=== PATIENT | female | born 1990 | race Hispanic/Latino ===

== ENCOUNTER 2017-05-20 16:14 | Inpatient (IN) | payer BC ==
[2017-05-20] MEDS ORDERED: NACL 0.9% 1000 ML 1,000 ML IV ONE ×2 (16:31→16:41)
--- NOTE | 2017-05-20 16:40 | Emergency Department Report ---
ED General Adult HPI - General Chief complaint: Vaginal Bleeding Stated complaint: ATOPIC PREG. Time Seen by Provider: 05/20/17 16:23 Source: patient Mode of arrival: Ambulatory Limitations: No Limitations - History of Present Illness Initial comments: The patient is 5 weeks by dates she states. Her hCG I am told is 4000 and her uterus was empty on ultrasound in the office. Dr. Boateng called in and stated the patient is to be admitted for suspected ectopic . This is her first . She has been having intermittent vaginal bleeding. She does not complain of abdominal or pelvic pain. Patient has a history of hypertension. -: days(s) Severity scale (0 -10): 0 Consistency: intermittent Improves with: none Worsens with: none Associated Symptoms: denies other symptoms (except vaginal bleeding) Treatments Prior to Arrival: none - Related Data Allergies Allergy/AdvReac Type Severity Reaction Status Date / Time No Known Allergies Allergy Verified 05/20/17 16:24 ED Review of Systems ROS: Stated complaint: ATOPIC PREG. Other details as noted in HPI Constitutional: denies: chills, fever Eyes: denies: eye pain, eye discharge, vision change ENT: denies: ear pain, throat pain Respiratory: denies: cough, shortness of breath, wheezing Cardiovascular: denies: chest pain, palpitations Endocrine: no symptoms reported Gastrointestinal: denies: abdominal pain, nausea, diarrhea Genitourinary: as per HPI. denies: urgency, dysuria, discharge Musculoskeletal: denies: back pain, joint swelling, arthralgia Skin: denies: rash, lesions Neurological: denies: headache, weakness, paresthesias Psychiatric: denies: anxiety, depression Hematological/Lymphatic: denies: easy bleeding, easy bruising ED Past Medical Hx - Past Medical History Previous Medical History?: No - Surgical History Past Surgical History?: No - Social History Substance Use Type: None ED Physical Exam - General Limitations: No Limitations General appearance: alert, in no apparent distress - Head Head exam: Present: atraumatic, normocephalic - Eye Eye exam: Present: normal appearance. Absent: scleral icterus - ENT ENT exam: Present: mucous membranes moist - Neck Neck exam: Present: normal inspection - Respiratory Respiratory exam: Present: normal lung sounds bilaterally. Absent: respiratory distress - Cardiovascular Cardiovascular Exam: Present: regular rate, normal rhythm. Absent: systolic murmur, diastolic murmur, rubs, gallop - GI/Abdominal GI/Abdominal exam: Present: soft, normal bowel sounds. Absent: distended, tenderness, guarding, rebound, rigid - Extremities Exam Extremities exam: Present: normal inspection - Back Exam Back exam: Present: normal inspection - Neurological Exam Neurological exam: Present: alert, oriented X3, CN II-XII intact. Absent: motor sensory deficit - Psychiatric Psychiatric exam: Present: normal affect, normal mood - Skin Skin exam: Present: warm, dry, intact, normal color. Absent: rash ED Course Vital Signs 05/20/17 05/20/17 16:26 16:31 Temperature 98.7 F Pulse Rate 90 Respiratory 18 16 Rate Blood Pressure 154/105 [Right] O2 Sat by Pulse 99 Oximetry - Reevaluation(s) Reevaluation #1: I spoke with Dr. Boateng. The patient will be seen on mother baby by Dr. Boateng. 05/20/17 16:39 Critical care attestation.: If time is entered above; I have spent that time in minutes in the direct care of this critically ill patient, excluding procedure time. ED Disposition Clinical Impression: First trimester bleeding Hypertension Qualifiers: Hypertension type: unspecified Qualified Code(s): I10 - Essential (primary) hypertension Disposition: 09 OP ADMIT IP TO THIS HOSP Is pt being admited?: Yes Does the pt Need Aspirin: No Condition: Stable Instructions: Hypertension (ED) Time of Disposition: 16:40
[2017-05-20 17:04] LABS: Basophils % (Auto) 0.6 % (0.0-1.8); Eosinophils % (Auto) 1.1 % (0.0-4.3); Hematocrit 33.5 % (30.3-42.9); Hemoglobin 11.8 gm/dl (10.1-14.3); Mean Corpuscular HGB Conc 35 % (30-34); Mean Corpuscular Hemoglobin 34 pg (28-32); Mean Corpuscular Volume 98 fl (79-97); Platelet Count 365 K/mm3 (140-440); Red Blood Count 3.44 M/mm3 (3.65-5.03); Red Cell Distribution Width 11.3 % (13.2-15.2); White Blood Count 5.6 K/mm3 (4.5-11.0)
[2017-05-20 17:16] LABS: Partial Thromboplastin Time 29.3 Sec. (24.2-36.6)
[2017-05-20 17:20] LABS: Alanine Aminotransferase 21 units/L (7-56); Albumin 4.8 g/dL (3.9-5); Albumin/Globulin Ratio 1.4 %; Alkaline Phosphatase 70 units/L (35-129); Anion Gap 21 mmol/L; BUN/Creatinine Ratio 12; Blood Urea Nitrogen 6 mg/dL (7-17); Calcium 9.7 mg/dL (8.4-10.2); Carbon Dioxide 23 mmol/L (22-30); Glucose 92 mg/dL (65-100); Potassium 3.8 mmol/L (3.6-5.0); Sodium 139 mmol/L (137-145); Total Protein 8.3 g/dL (6.3-8.2)
[2017-05-20 17:22] LABS: Bilirubin,Direct < 0.2 mg/dL (0-0.2); Bilirubin,Indirect 0.3 mg/dL
[2017-05-20 20:14] LABS: Bilirubin,Urine NEG (Negative); Blood,Urine NEG (Negative); Ketones,Urine 20 mg/dL (Negative); Leukocyte Esterase,Urine NEG (Negative); Mucus,Urine FEW /HPF; Nitrite,Urine NEG (Negative); Protein,Urine <15 mg/dL mg/dL (Negative); RBC,Urine < 1.0 /HPF (0.0-6.0); Urobilinogen,Urine < 2.0 mg/dL (<2.0)
--- NOTE | 2017-05-20 22:46 | History and Physical Report ---
History of Present Illness Date of examination: 05/20/17 Date of admission: 05/20/17 16:40 Chief complaint: Vaginal bleeding suspected ectopic History of present illness: This is a 27-year-old female 1 para 0 who presented to the office on 11/2016 complaining of vaginal bleeding. Normal LMP was 03/18/2017. States she started bleeding again 04/22/2017. She thought this was a normal period. She started bleeding again on 04/30/2017 and has continued to bleed since that time. In the office her UPT was noted to be positive. She was noted to have scant blood-tinged mucus in the vagina but no active bleeding. Her quantitative beta hCG resulted on 05/19/2017 at 4032. She presented to the office today for further evaluation. Ultrasound revealed no intrauterine . Patient states bleeding had improved but continued to have some spotting. She is instructed to go ED for evaluation for ectopic . 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 Infection History Hx of STD: None Varicella/Chicken Pox Status: Previous Disease TB Risk: no Genetic History Thalassemia Mom: no Dad: no Neural Tube Defect Mom: no Dad: no Down's Syndrome Mom: no Dad: no Ivan-Sachs Mom: no Dad: no Sickle Cell Disease/Trait Mom: no Dad: no Hemophilia Mom: no Dad: no Muscular Dystrophy Mom: no Dad: no Cystic Fibrosis Mom: no Dad: no Jennifer Chorea Mom: no Dad: no Mental Retardation Mom: no Dad: no Fragile X Mom: no Dad: no Other Genetic/Chromosomal Disorder Mom: no Dad: no Child w/other defect Mom: no Dad: no Enviromental Exposures Enviromental Exposures Reviewed Xray Exposure no Chemical/Other Exposure no Past Medical History: Anxiety G E R D Hypertension Restless leg syndrome Past Surgical History: Negative Past Surgical History Family History Summary: Uncle - Has Family History of Lung Cancer - maternal - Entered On: 05/17/2017 MGM - Has Family History Breast Cancer - menopause - Entered On: 05/17/2017 Social History: Patient is Smoking History: Patient has never smoked. Risk Factors: Smoked Tobacco Use: Never smoker Drug use: no Alcohol use: yes Type: occ Drinks per day: social Exercise: yes Medications and Allergies Allergies Allergy/AdvReac Type Severity Reaction Status Date / Time No Known Allergies Allergy Verified 05/20/17 16:24 Home Medications Medication Instructions Recorded Confirmed Last Taken Type RX: Metoprolol [Lopressor TAB] 12.5 mg PO QPM 05/20/17 05/20/17 Unknown History RX: tiZANidine [Zanaflex] 4 mg PO QDAY PRN 05/20/17 05/20/17 Unknown History Ranitidine HCl [Zantac 150 MG TAB] 150 mg PO PRN PRN 05/20/17 05/20/17 Unknown History Active Meds: Active Medications Sodium Chloride (Nacl 0.9% 1000 Ml) 1,000 mls @ 75 mls/hr IV ONCE ONE Stop: 05/21/17 06:00 Last Admin: 05/20/17 19:37 Dose: 75 mls/hr Review of Systems All systems: negative Genitourinary Female: abnormal vaginal bleeding Exam - Constitutional Vitals: Temp Pulse Resp BP Pulse Ox 98.6 F 81 16 149/103 100 05/20/17 19:30 05/20/17 19:30 05/20/17 19:30 05/20/17 19:30 05/20/17 18:04 General appearance: Present: mild distress - Respiratory Respiratory effort: normal - Cardiovascular Rhythm: regular - Extremities Extremities: no ischemia, No edema - Abdominal General gastrointestinal: Present: soft Female genitourinary: Present: other (scant blood in vagina) - Integumentary Integumentary: Present: clear, warm, dry Results - Labs CBC & Chem 7: 05/20/17 Unknown 05/20/17 Unknown Labs: Abnormal lab results 05/20/17 05/20/17 05/20/17 Range/Units Unknown Unknown Unknown RBC 3.44 L (3.65-5.03) M/mm3 MCV 98 H (79-97) fl MCH 34 H (28-32) pg MCHC 35 H (30-34) % RDW 11.3 L (13.2-15.2) % [place] % (Auto) 7.5 H (0.0-7.3) % Lymph # 1.1 L (1.2-5.4) K/mm3 Seg Neutrophils % 71.5 H (40.0-70.0) % BUN 6 L (7-17) mg/dL Creatinine 0.5 L (0.7-1.2) mg/dL Total Protein 8.3 H (6.3-8.2) g/dL HCG, Quant 5332 H (0-4) mIU/mL Assessment and Plan - Patient Problems (1) Abnormal in first trimester Current Visit: Yes Status: Acute Plan to address problem: Probable ectopic . She is stable at this time and desires repeat qbhcg , cbc and TVUS in am. Options reviewed. Methotrexate instruction sheet given
[2017-05-21] MEDS ORDERED: LOPRESSOR PO SCH (01:00)
--- NOTE | 2017-05-21 09:15 | Ultrasound Report ---
FINAL REPORT EXAM: US OB TRANSVAGINAL HISTORY: evaluate for ectopic , hcg 5332 COMPARISONS: None. FINDINGS: Transvaginal grayscale and color Doppler ultrasound evaluation of the pelvis The uterus is retroverted and measures 7.3 x 3.1 x 3.8 cm. No intrauterine . Endometrial thickness is approximately 10 millimeters. The left ovary measures 2.9 x 1.9 x 3.3 cm and demonstrates normal echotexture and color Doppler evaluation. Separate from the ovary, there is a complex cystic left adnexal mass with marked peripheral blood flow on internal color Doppler measuring 2.4 x 1.6 x 1.7 cm. Moderate volume of dependent fluid is present in the cul-de-sac and adjacent to the left adnexa. The right ovary measures 4.1 x 1.9 x 2.9 cm and contains several functional cysts, the largest of which measures up to 2 cm. Normal color Doppler evaluation of the right ovary. IMPRESSION: No intrauterine . Cystic adnexal mass measuring up to 2.4 cm in the left ovary is concerning for an ectopic . Gynecology consultation and at a minimum, short interval clinical and imaging follow-up are recommended. Dr. Kincaid discussed findings with Dr. Monterroso at 08:10 SE[employer] HAND on 05/21/2017 immediately following the examination.
--- NOTE | 2017-05-21 09:16 | Ultrasound Report ---
FINAL REPORT EXAM: US OB \T\lt; = 14 WEEKS FETUS HISTORY: Possible ectopic COMPARISONS: None. FINDINGS: Transabdominal grayscale and color Doppler ultrasound evaluation of the pelvis The uterus measures 7.3 x 3.1 x 3.8 cm. No intrauterine . Endometrial thickness is approximately 10 millimeters. The left ovary measures 2.9 x 1.9 x 3.3 cm and demonstrates normal echotexture and color Doppler evaluation. Separate from the ovary, there is a complex cystic left adnexal mass measuring 2.4 x 1.6 x 1.7 cm. A small volume of dependent fluid is present in the cul-de-sac and adjacent to the left adnexa. The right ovary measures 4.1 x 1.9 x 2.9 cm and contains several functional cysts, the largest of which measures up to 2 cm. Color Doppler flow is present in the right ovary. IMPRESSION: No intrauterine . Cystic adnexal mass measuring up to 2.4 cm in the left ovary is concerning for an ectopic and is better demonstrated on transvaginal ultrasound of the same date. Gynecology consultation and at a minimum, short interval clinical and imaging follow-up are recommended. Dr. Kincaid discussed findings with Dr. Monterroso at 08:10 [employer] on 05/21/2017 immediately following the examination.
[2017-05-21 09:21] LABS: Hematocrit 33.7 % (30.3-42.9); Hemoglobin 11.4 gm/dl (10.1-14.3); Mean Corpuscular HGB Conc 34 % (30-34); Mean Corpuscular Hemoglobin 33 pg (28-32); Mean Corpuscular Volume 98 fl (79-97); Platelet Count 342 K/mm3 (140-440); Red Blood Count 3.43 M/mm3 (3.65-5.03); Red Cell Distribution Width 11.5 % (13.2-15.2); White Blood Count 6.5 K/mm3 (4.5-11.0)
--- NOTE | 2017-05-21 11:00 | Discharge Summary ---
Providers - Providers Date of Admission: 05/20/17 16:40 Date of discharge: 05/21/17 Attending physician: BENNETT HARMON Primary care physician: CERTIFIED COMPOSITES TECHNICIAN Hospitalization Reason for admission: probable ectopic Condition: Stable Pertinent studies: HCG level on repeat is 5534, 2 d ago was 4000. Radiology report = L ectopic near ovary with some free fluid (also had apparent hydro on R side in office) Procedures: TV U/S Hospital course: Discussed with pt and family that this is definitely a tubal and she either needs surgery or methotrexate. After a long discussion and other family arrived they areed. Ectopic precautions given. She will need an appointment in the office on Tuesday for day 4 f/u. CMP,CBC wnl. Told to stop prenatals. Disposition: TO HOME OR SELFCARE - Discharge Diagnoses (1) Ectopic , tubal Status: Acute Qualifiers: Intrauterine status: I Laterality: left Comment: treated with MTX and discharged home with ectopic precautions, inc pain , fainting, distention. Do not leave pt alone, no exercise, no sex Core Measure Documentation - Palliative Care Palliative Care/ Comfort Measures: Not Applicable - Core Measures Any of the following diagnoses?: none Exam - Constitutional Vitals: Temp Pulse Resp BP Pulse Ox 98.6 F 69 16 136/82 100 05/21/17 04:30 05/21/17 04:30 05/21/17 04:30 05/21/17 04:30 05/20/17 18:04 General appearance: Present: no acute distress - Neck Neck: Present: supple - Respiratory Respiratory effort: normal - Cardiovascular Rhythm: regular - Extremities Extremities: no ischemia, No edema - Abdominal General gastrointestinal: Present: soft, non-tender Female genitourinary: Present: deferred Plan Activity: no restrictions (pelvic rest, no exercise), other (pelvic rest, no exercise) Weight Bearing Status: Full Weight Bearing Diet: regular Special Instructions: no heavy lifting Follow up with: KARI ABRAHAM MD [Staff Physician] - 7 Days (RTO on Tuesday) Forms: [facility] Discharge Summary, Discharge Signature Page
[2017-05-21] MEDS ORDERED: METHOTREXATE IM ONE (12:00)
[2017-05-21 15:39] VITALS: BP 148/100
== END 2017-05-21 17:46 | disposition home or self-care (01) | DRG 777 ==
LOC: ED 16:14 → OB 16:40
PROVIDERS: ADMIT Obstetrics & Gynecology; ATTEND Obstetrics & Gynecology
DX: O00.102 Left tubal pregnancy without intrauterine pregnancy (principal); O16.1 Unspecified maternal hypertension, first trimester; K21.9 Gastro-esophageal reflux disease without esophagitis; F41.9 Anxiety disorder, unspecified; G25.81 Restless legs syndrome; O99.341 Other mental disorders complicating pregnancy, first trimester; O99.611 Diseases of the digestive system complicating pregnancy, first trimester; Z80.3 Family history of malignant neoplasm of breast; Z80.1 Family history of malignant neoplasm of trachea, bronchus and lung; Z72.89 Other problems related to lifestyle; Z3A.01 Less than 8 weeks gestation of pregnancy
CPT/HCPCS: 36415; 76801; 76817; 80048; 80074; 81001; 84702; 85025; 85027; 85610; 85730; 86850; 86900; 86901; J7030; J9260

== ENCOUNTER 2017-05-28 17:17 | Observation (INO) | payer BC ==
[2017-05-28 19:34] LABS: Basophils % (Auto) 0.5 % (0.0-1.8); Eosinophils % (Auto) 3.6 % (0.0-4.3); Hematocrit 35.1 % (30.3-42.9); Hemoglobin 12.1 gm/dl (10.1-14.3); Mean Corpuscular HGB Conc 34 % (30-34); Mean Corpuscular Hemoglobin 34 pg (28-32); Mean Corpuscular Volume 98 fl (79-97); Platelet Count 373 K/mm3 (140-440); Red Blood Count 3.58 M/mm3 (3.65-5.03); Red Cell Distribution Width 11.2 % (13.2-15.2); White Blood Count 4.3 K/mm3 (4.5-11.0)
[2017-05-28 19:48] LABS: Anion Gap 21 mmol/L; BUN/Creatinine Ratio 15; Blood Urea Nitrogen 6 mg/dL (7-17); Calcium 9.6 mg/dL (8.4-10.2); Carbon Dioxide 23 mmol/L (22-30); Chloride 102.3 mmol/L (98-107); Glucose 85 mg/dL (65-100); Sodium 142 mmol/L (137-145)
--- NOTE | 2017-05-28 23:17 | Emergency Department Report ---
ED HPI - General Chief complaint: Medical Clearance Stated complaint: 2ND DOSE OF METHOTREX Time Seen by Provider: 05/28/17 23:14 Source: patient, family () Mode of arrival: Ambulatory Limitations: No Limitations - History of Present Illness Initial comments: PT HAS SUSPECTED ECTOPIC DIAGNOSED ON AND WAS ADMITTED ,GIVEN METHOTREXATE AND WAS TOLD TO COME TO THE HOSPITAL FOR ANOTHER SHOT OF THE MEDICATION. SHE IS HAVING MINIMAL AMOUNT OF VAGINAL BLEEDING BUT IS NOT EXPERIENCING AN ABDOMINAL PAIN MD Complaint: vaginal bleeding -: Gradual, week(s) (2) Radiation: none Severity: mild Severity scale (0 -10): 0 Associated symptoms: vaginal bleeding. denies: nausea/vomiting, vaginal discharge, abdominal pain Vaginal bleeding: light (NO CLOTS) OB History - Current : hypertension OB History - Previous Pregnancies: no complications Pre-willie care: none - Related Data : 1 Para: 0 Ab: 0 Home Medications Medication Instructions Recorded Confirmed Last Taken Metoprolol [Lopressor TAB] 12.5 mg PO QPM 05/20/17 05/20/17 Unknown Ranitidine HCl [Zantac 150 MG TAB] 150 mg PO PRN PRN 05/20/17 05/20/17 Unknown tiZANidine [Zanaflex] 4 mg PO QDAY PRN 05/20/17 05/20/17 Unknown Allergies Allergy/AdvReac Type Severity Reaction Status Date / Time No Known Allergies Allergy Verified 05/20/17 16:24 ED Review of Systems ROS: Stated complaint: 2ND DOSE OF METHOTREX Other details as noted in HPI Constitutional: denies: chills, fever Eyes: denies: eye pain, eye discharge, vision change ENT: denies: ear pain, throat pain Respiratory: denies: cough, shortness of breath, wheezing Cardiovascular: denies: chest pain, palpitations Endocrine: no symptoms reported Gastrointestinal: denies: abdominal pain, nausea, diarrhea Genitourinary: other (VAGINAL BLEEDING). denies: urgency, dysuria, discharge Musculoskeletal: denies: back pain, joint swelling, arthralgia Skin: denies: rash, lesions Neurological: denies: headache, weakness, paresthesias Psychiatric: anxiety. denies: depression Hematological/Lymphatic: denies: easy bleeding, easy bruising ED Past Medical Hx - Past Medical History Previous Medical History?: Yes Hx Hypertension: Yes Hx Psychiatric Treatment: Yes (Anxiety disorder and taking Xanax) Additional medical history: Methotrexate - Surgical History Past Surgical History?: No - Family History Family history: no significant - Social History Smoking Status: Never Smoker Substance Use Type: Alcohol - Medications Home Medications: Home Medications Medication Instructions Recorded Confirmed Last Taken Type Metoprolol [Lopressor TAB] 12.5 mg PO QPM 05/20/17 05/20/17 Unknown History Ranitidine HCl [Zantac 150 MG TAB] 150 mg PO PRN PRN 05/20/17 05/20/17 Unknown History tiZANidine [Zanaflex] 4 mg PO QDAY PRN 05/20/17 05/20/17 Unknown History ED Physical Exam - General Limitations: No Limitations General appearance: alert, in no apparent distress - Head Head exam: Present: atraumatic, normocephalic - Eye Eye exam: Present: normal appearance - ENT ENT exam: Present: mucous membranes moist - Neck Neck exam: Present: normal inspection - Respiratory Respiratory exam: Present: normal lung sounds bilaterally. Absent: respiratory distress - Cardiovascular Cardiovascular Exam: Present: regular rate, normal rhythm. Absent: systolic murmur, diastolic murmur, rubs, gallop - GI/Abdominal GI/Abdominal exam: Present: soft, normal bowel sounds - Rectal Rectal exam: Present: deferred - Extremities Exam Extremities exam: Present: normal inspection - Back Exam Back exam: Present: normal inspection - Neurological Exam Neurological exam: Present: alert, oriented X3 - Psychiatric Psychiatric exam: Present: normal affect, normal mood - Skin Skin exam: Present: warm, dry, intact, normal color. 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 ED Disposition Clinical Impression: Vaginal bleeding, Hypertension Ectopic Qualifiers: Location of ectopic : unspecified location Intrauterine status: unspecified Qualified Code(s): O00.90 - Unspecified ectopic without intrauterine Disposition: DC/TX-02 SHRT-TRM GEN HOSP IP Is pt being admited?: Yes Does the pt Need Aspirin: No Condition: Stable Time of Disposition: 01:54 (ADMITTED TO OB DR MUKHERJEE)
[2017-05-28] MEDS ORDERED: LOPRESSOR PO ONE (23:18)
[2017-05-28] MEDS ORDERED: LOPRESSOR ONE (23:23)
--- NOTE | 2017-05-29 00:45 | History and Physical Report ---
History of Present Illness Date of examination: 05/29/17 Date of admission: 05/29/17 Chief complaint: second dose of methotrexate History of present illness: Pt presents to ER for second dose of mxt after being called by providers and being advised that repeat quant drawn on 05/27/17 did not show a 15% decrease. I was just informed by ER provider that the MXT is not able to be given in the ER and pt would need to be admitted for dosing. Pt will be admitted and dc home after medication is given with f/u with Dr. Monterroso on Tuesday05/30/17. Past Medical History Social Hx: Patient is Smoking History: Patient has never smoked. Active Medications (reviewed today): ALLERGY MEDS () VITEX () VITAMINS () PLUS 27-1 MG TABS ( VIT-FE FUMARATE-FA) 1 po qd XANAX TABS (ALPRAZOLAM TABS) RANITIDINE HCL 150 MG ORAL TABS (RANITIDINE HCL) TIZANIDINE HCL POWD (TIZANIDINE HCL) METOPROLOL SUCCINATE ER [id number] (METOPROLOL SUCCINATE [id number]) Current Allergies (reviewed today): No known allergies Past History Past Medical History: hypertension, other (anxiety disorder) Past Surgical History: no surgical history Medications and Allergies Allergies Allergy/AdvReac Type Severity Reaction Status Date / Time No Known Allergies Allergy Verified 05/20/17 16:24 Home Medications Medication Instructions Recorded Confirmed Last Taken Type Metoprolol [Lopressor TAB] 12.5 mg PO QPM 05/20/17 05/20/17 Unknown History Ranitidine HCl [Zantac 150 MG TAB] 150 mg PO PRN PRN 05/20/17 05/20/17 Unknown History tiZANidine [Zanaflex] 4 mg PO QDAY PRN 05/20/17 05/20/17 Unknown History Review of Systems All systems: negative - Vital Signs Vital signs: Vital Signs Temp Pulse Resp BP Pulse Ox 98.5 F 92 H 20 152/111 100 05/28/17 17:40 05/28/17 17:40 05/28/17 17:40 05/28/17 17:40 05/28/17 17:40 Temp Pulse Resp BP Pulse Ox 98.5 F 92 H 20 144/92 100 05/28/17 17:40 05/28/17 17:40 05/28/17 17:40 05/28/17 23:22 05/28/17 17:40 Results Result Diagrams: 05/28/17 19:18 05/28/17 19:18 Abnormal lab results 05/28/17 05/28/17 05/28/17 Range/Units 19:18 19:18 19:18 WBC 4.3 L (4.5-11.0) K/mm3 RBC 3.58 L (3.65-5.03) M/mm3 MCV 98 H (79-97) fl MCH 34 H (28-32) pg RDW 11.2 L (13.2-15.2) % Lymph % (Auto) 37.3 H (13.4-35.0) % [place] % (Auto) 9.2 H (0.0-7.3) % BUN 6 L (7-17) mg/dL Creatinine 0.4 L (0.7-1.2) mg/dL HCG, Quant 5640 H (0-4) mIU/mL All other labs normal. Assessment and Plan - Patient Problems (1) Anxiety Current Visit: Yes Status: Acute (2) Ectopic , tubal Current Visit: No Status: Acute Qualifiers: Intrauterine status: I Laterality: left Plan to address problem: -admit for 2nd dose of MTX -d/c home after administration -f/u in office on Tuesday with Dr. Monterroso at scheduled apt. (3) Hypertension Current Visit: No Status: Acute Qualifiers: Hypertension type: unspecified Qualified Code(s): I10 - Essential (primary ) hypertension
[2017-05-29] MEDS ORDERED: METHOTREXATE IM ONE (00:52)
[2017-05-29] MEDS ORDERED: MILK OF MAGNESIA PO PRN (00:53)
[2017-05-29] MEDS ORDERED: TYLENOL PO PRN (00:53)
[2017-05-29] MEDS ORDERED: ZOFRAN IV PRN (00:53)
--- NOTE | 2017-05-29 05:38 | Progress Note ---
Assessment and Plan All criteria noted from recommended protocol. DESK MAKER exam done Small blood noted on exam glove No tenderness, no masses. Pt w/o complaint. VSS Will d/c in one hour as per 's order. Pt aware of and will keep appt tomorrow for BW. All questions addressed. Subjective - Subjective Date of service: 05/29/17 (Methotrexate given 0532) Objective - Vital Signs Latest vital signs: Vital Signs Temp Pulse Resp BP BP Pulse Ox 05/29/17 04:30 98.6 F 71 16 121/77 05/29/17 03:30 98.6 F 81 16 138/97 05/29/17 01:41 82 16 138/99 100 Intake and Output 05/28/17 05/28/17 05/29/17 14:59 22:59 06:59 Intake Total 510 Output Total 100 Balance 410 Intake: IV 10 Right Antecubital 10 Oral 200 Intake, Free Water 300 Output: Urine 100 Void 100 Other: Total, Intake Amount 200 Total, Output Amount 100 Voiding Method Toilet Weight 102 lb 3.195 oz Patient Weight 05/29/17 06:59 Weight 102 lb 3.195 oz
[2017-05-29 07:01] VITALS: BP 128/82
[2017-05-29] MEDS ORDERED: LOPRESSOR PO SCH ×2 (10:00)
== END 2017-05-29 06:40 | disposition home or self-care (01) ==
LOC: ED 17:17 → OB 05-29 00:53
PROVIDERS: ADMIT Obstetrics & Gynecology; ATTEND Obstetrics & Gynecology
DX: O00.102 Left tubal pregnancy without intrauterine pregnancy (principal); O99.340 Other mental disorders complicating pregnancy, unspecified trimester; F41.9 Anxiety disorder, unspecified; O10.019 Pre-existing essential hypertension complicating pregnancy, unspecified trimester; Z3A.00 Weeks of gestation of pregnancy not specified
CPT/HCPCS: 36415; 80048; 84702; 85025; 96372; 99285; G0378; J9260